=== PATIENT | male | born 2000 | race Caucasian/White ===

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

== ENCOUNTER 2022-10-10 20:50 | Emergency (ER) | payer OTHER ==
[~2022-10-10] VITALS: Ht 177.8 cm; Wt 69.5 kg
[~2022-10-10 20:50] MED LIST: IBUP1TAB6 PO
[2022-10-10] MEDS ORDERED: NS 1,000 ML IV ONE (21:15)
[2022-10-10] MEDS ORDERED: METOCLOPRAMIDE INJ 10MG/2ML VIAL IV ONE (21:15)
[2022-10-10] MEDS ORDERED: PANTOPRAZOLE 40MG VIAL IV ONE (21:15)
[2022-10-10] MEDS ORDERED: ISOVUE-370 76% 100ML VIAL As Ordered ONE (21:46)
[2022-10-10 21:59] LABS: BASO % 0.2 % (0.0-1.0); EOS % 0.3 % (0.0-3.0); HEMATOCRIT 45.5 % (42.0-52.0); HEMOGLOBIN 15.5 g/dl (13.5-17.5); LYMPH # 0.5 10^3/uL (1.5-5.0); LYMPH % 5.3 % (24.0-44.0); MEAN CORPUSCULAR HGB CONC 34.1 g/dl (32.0-36.5); MONO # 0.4 10^3/uL (0.0-0.8); MONO % 4.6 % (2.0-8.0); NEUTROPHILS # 8.2 10^3/uL (1.5-8.5); NEUTROPHILS % 89.3 % (36.0-66.0); PLATELET COUNT, AUTOMATED 202 10^3/uL (150-450); RED BLOOD COUNT 5.35 10^6/uL (4.30-6.10); WHITE BLOOD COUNT 9.1 10^3/uL (4.0-10.0)
[2022-10-10 22:18] LABS: ALBUMIN 4.3 G/DL (3.2-5.2); BILIRUBIN,DIRECT 0.4 MG/DL (<0.4); TOTAL PROTEIN 7.2 G/DL (5.7-8.2)
[2022-10-10] MEDS ORDERED: ACETAMINOPHEN 500 MG TAB PO ONE (23:05)
[2022-10-11] MEDS ORDERED: REGL10TA6 PO (00:58)
[2022-10-11] MEDS ORDERED: PROT1TAB2 PO (00:58)
[2022-10-11 01:13] VITALS: BP 109/58
== END 2022-10-11 01:44 | disposition home or self-care (01) ==
LOC: EDBD 20:50 → M ED 20:50
DX: A08.4 Viral intestinal infection, unspecified (principal); Z79.1 Long term (current) use of non-steroidal anti-inflammatories (NSAID); Z79.899 Other long term (current) drug therapy
CPT/HCPCS: 74177; 80047; 80076; 81001; 83690; 85025; 96374; 99284; C9113; J2765; Q9967

== ENCOUNTER 2023-05-16 21:36 | Emergency (ER) | payer OTHER ==
[~2023-05-16] VITALS: Ht 177.8 cm; Wt 64.5 kg
[~2023-05-16 21:36] MED LIST changes: +PROT1TAB2 PO; +REGL10TA6 PO
[2023-05-16] MEDS ORDERED: ACETAMINOPHEN *IV* 1,000 MG in IV 1 EA IV ONE (22:15)
[2023-05-16] MEDS ORDERED: ONDANSETRON 4MG 2ML VIAL IV ONE (22:15)
[2023-05-16] MEDS ORDERED: NS 1,000 ML IV ONE (22:15)
[2023-05-16] MEDS ORDERED: KETOROLAC 30 MG/ML 1ML VIAL IV ONE (23:00)
[2023-05-17 00:11] LABS: BASO % 0.6 % (0.0-1.0); HEMATOCRIT 37.6 % (42.0-52.0); LYMPH # 0.5 10^3/uL (1.5-5.0); MEAN CORPUSCULAR HGB CONC 34.6 g/dl (32.0-36.5); MEAN CORPUSCULAR VOLUME 83.9 fl (80.0-96.0); MONO # 0.5 10^3/uL (0.0-0.8); MONO % 13.2 % (2.0-8.0); NEUTROPHILS # 2.4 10^3/uL (1.5-8.5); NEUTROPHILS % 70.3 % (36.0-66.0); PLATELET COUNT, AUTOMATED 173 10^3/uL (150-450); RED BLOOD COUNT 4.48 10^6/uL (4.30-6.10); WHITE BLOOD COUNT 3.4 10^3/uL (4.0-10.0)
[2023-05-17] MEDS ORDERED: PENI500T PO (00:20)
[2023-05-17] MEDS ORDERED: PENICILLIN V POTASSIUM 500 MG TAB PO ONE (00:20)
[2023-05-17 00:43] VITALS: BP 100/60; TEMP 100.6; O2SAT 99
[2023-05-17 00:57] LABS: BLOOD UREA NITROGEN 13 MG/DL (9-23); CALCIUM LEVEL 7.7 MG/DL (8.5-10.1); CARBON DIOXIDE LEVEL 25 MMOL/L (20-31); CHLORIDE LEVEL 103 MMOL/L (98-107); CREATININE FOR GFR 1.01 MG/DL (0.70-1.30); GLUCOSE, FASTING 97 MG/DL (60-100); POTASSIUM SERUM 4.1 MMOL/L (3.5-5.1); SODIUM LEVEL 134 MMOL/L (136-145)
== END 2023-05-17 00:47 | disposition home or self-care (01) ==
LOC: M ED 21:36
DX: S06.0X0A Concussion without loss of consciousness, initial encounter (principal); J02.0 Streptococcal pharyngitis; F17.200 Nicotine dependence, unspecified, uncomplicated; Y92.9 Unspecified place or not applicable; Y93.62 Activity, american flag or touch football; Y99.9 Unspecified external cause status; Z79.2 Long term (current) use of antibiotics; Z79.899 Other long term (current) drug therapy
CPT/HCPCS: 70450; 71045; 72125; 80048; 85025; 87486; 87581; 87633; 87798; 87880; 96365; 96366; 96375; 99283; J0131; J1885; J2405

== ENCOUNTER 2023-08-09 18:57 | Emergency (ER) | payer OTHER ==
[~2023-08-09] VITALS: Ht 177.8 cm; Wt 70.0 kg
[~2023-08-09 18:57] MED LIST changes: +PENI500T PO
[2023-08-09 20:16] LABS: HEMATOCRIT 42.5 % (42.0-52.0); HEMOGLOBIN 14.7 g/dl (13.5-17.5); MEAN CORPUSCULAR HGB CONC 34.6 g/dl (32.0-36.5); MEAN CORPUSCULAR VOLUME 83.8 fl (80.0-96.0); PLATELET COUNT, AUTOMATED 196 10^3/uL (150-450); RED BLOOD COUNT 5.07 10^6/uL (4.30-6.10); WHITE BLOOD COUNT 6.6 10^3/uL (4.0-10.0)
[2023-08-09 20:51] LABS: ALBUMIN 3.9 G/DL (3.2-5.2); ALKALINE PHOSPHATASE 70 U/L (46-116); ALT/SGPT 16 U/L (7.0-40); AST/SGOT 13 U/L (<34); BILIRUBIN,TOTAL 0.6 MG/DL (0.3-1.2); BLOOD UREA NITROGEN 17 MG/DL (9-23); CALCIUM LEVEL 8.7 MG/DL (8.5-10.1); CARBON DIOXIDE LEVEL 28 MMOL/L (20-31); CHLORIDE LEVEL 106 MMOL/L (98-107); CREATININE FOR GFR 0.83 MG/DL (0.70-1.30); GLUCOSE, FASTING 92 MG/DL (60-100); POTASSIUM SERUM 4.1 MMOL/L (3.5-5.1); SODIUM LEVEL 136 MMOL/L (136-145); TOTAL PROTEIN 6.3 G/DL (5.7-8.2)
[2023-08-10] MEDS ORDERED: ISOVUE-370 76% 100ML VIAL As Ordered ONE (00:10)
[2023-08-10] MEDS: NS 1,000 ML IV ONE (01:05)
[2023-08-10] MEDS: ONDANSETRON 4MG 2ML VIAL IV ONE (01:05)
[2023-08-10] MEDS: KETOROLAC 30 MG/ML 1ML VIAL IV ONE (01:06)
[2023-08-10] MEDS: FLEET ENEMA PR ONE (02:20)
[2023-08-10 02:43] VITALS: BP 131/77; TEMP 98.7; O2SAT 98
== END 2023-08-10 02:48 | disposition home or self-care (01) ==
LOC: M ED 18:57
DX: A09 Infectious gastroenteritis and colitis, unspecified (principal); K59.00 Constipation, unspecified
CPT/HCPCS: 74177; 80053; 85027; 87486; 87581; 87633; 87798; 93005; 96361; 96374; 96375; 99284; J1885; J2405; Q9967